=== PATIENT | male | born 1940 | race Caucasian/White ===

== ENCOUNTER 2017-08-19 04:44 | Emergency (ER) | payer BC ==
[~2017-08-19] VITALS: Ht 182.9 cm; Wt 98.0 kg
[2017-08-19 04:52] VITALS: Ht 182.9 cm; Wt 98.0 kg
[2017-08-19 05:52] VITALS: BP 150/93
== END 2017-08-19 05:52 | disposition home or self-care (01) ==
LOC: ED 04:44
DX: R04.0 Epistaxis (principal)
CPT/HCPCS: J3490

== ENCOUNTER 2017-08-21 18:40 | Emergency (ER) | payer BC ==
[~2017-08-21] VITALS: Ht 177.8 cm; Wt 97.1 kg
[2017-08-21 18:54] VITALS: Ht 177.8 cm; Wt 97.1 kg
[2017-08-21 20:55] VITALS: BP 142/110
== END 2017-08-21 20:55 | disposition home or self-care (01) ==
LOC: ED 18:40
DX: R04.0 Epistaxis (principal); I10 Essential (primary) hypertension; I48.91 Unspecified atrial fibrillation; E78.00 Pure hypercholesterolemia, unspecified